=== PATIENT | male | born 1995 | race Caucasian/White ===

== ENCOUNTER 2017-04-02 07:55 | Outpatient (CLI) | payer BC | END 2017-04-02 07:56 | disposition home or self-care (01) | LOC: BICULT 07:55 | PROVIDERS: ATTEND Internal Medicine | DX: B27.90 Infectious mononucleosis, unspecified without complication (principal); R94.5 Abnormal results of liver function studies; R10.10 Upper abdominal pain, unspecified; R16.2 Hepatomegaly with splenomegaly, not elsewhere classified | CPT/HCPCS: 76700 ==

== ENCOUNTER 2018-01-28 07:07 | Outpatient (CLI) | payer BC ==
--- NOTE | 2018-01-28 10:33 | ULT ---
ABDOMEN ULTRASOUND: HISTORY: Infectious mononucleosis. COMPARISON: 04/02/2017 FINDINGS: The liver measures 19.6 cm in length, and the spleen measures 13.5 cm in length. The hyperechoic mas s in the right lobe of the liver, noted on the previous exam, currently measures 2.4 x 2.2 x 2.1 cm ( previously 2 x 2 x 1.7 cm). Small echogenic foci in the spleen are consistent with granulomatous dis ease. No gallstones, gallbladder wall thickening, or pericholecystic fluid is seen. The pancreas, kidneys, and visualized portion of the aorta and IVC are normal. No free fluid is seen. IMPRESSION: 1. Mild hepatosplenomegaly. 2. Probable hemangioma in the right lobe of the liver. Confirmation with technetium 99m red blood c ell scan would be helpful. POS: OFF
== END 2018-01-28 07:08 | disposition home or self-care (01) ==
LOC: BICULT 07:07
PROVIDERS: ATTEND Internal Medicine
DX: D18.03 Hemangioma of intra-abdominal structures (principal); B27.90 Infectious mononucleosis, unspecified without complication; R94.5 Abnormal results of liver function studies; R16.2 Hepatomegaly with splenomegaly, not elsewhere classified
CPT/HCPCS: 76700